=== PATIENT | female | born 1980 | race African-American/Black ===

== ENCOUNTER 2021-08-24 16:26 | Emergency (ER) | payer OTHER, SELFPAY ==
[2021-08-24 16:43] VITALS: BP 149/86; PULSE 84; RESP 16; TEMP 36.5; O2SAT 99
--- NOTE | 2021-08-24 17:10 | ED.FEMALEGU ---
HPI - Female Genitourinary General Chief complaint: Urogenital-Female Stated complaint: uti Time Seen by Provider: 08/24/21 16:50 Source: patient Mode of arrival: ambulatory Limitations: no limitations History of Present Illness HPI Narrative: Patient presents today complaining of left lower quadrant pain and thick white vaginal discharge that she noted this morning along with urinary frequency. Denies any additional symptoms to include dysuria, hematuria, nausea or vomiting, diarrhea, fever. Related Data Home Medications Medication Instructions Recorded Confirmed metformin 500 mg tablet 500 mg PO DAILY 08/24/21 08/24/21 Allergies Allergy/AdvReac Type Severity Reaction Status Date / Time No Known Allergies Allergy Verified 08/24/21 16:28 Review of Systems Review of Systems: CONSTITUTIONAL: Denies body aches, fever, chills, or sweats. EYES: Denies visual changes, redness, or discharge. ENT: Denies rhinorrhea, congestion, sore throat, or otalgia. CARDIOVASCULAR: Denies chest pain, palpitations, or edema. RESPIRATORY: Denies cough or dyspnea. GASTROINTESTINAL: Denies nausea, vomiting, or diarrhea.+ Left lower quadrant abdominal pain GENITOURINARY: + Urinary frequency, vaginal discharge SKIN: Denies rash, itching, or wounds. MUSCULOSKELETAL: Denies back pain, joint pain, or myalgia. NEUROLOGIC: Denies headache, numbness, tingling, or weakness. PSYCH: Denies depression or anxiety. PMFSH Comments At time of signature, I have reviewed and agree with nursing past medical, surgical, social and family history unless otherwise noted. Please see nursing chart for further information. There is no relevant family history pertinent to the presenting complaint Exam Narrative: GENERAL: Well-appearing, well-nourished, and in no acute distress. HEAD: Normocephalic, atraumatic. EYES: EOMI. No redness or drainage. Conjunctivae normal. ENT: Mucous membranes pink and moist. NECK: Normal AROM. CHEST: No respiratory distress. ABDOMEN: Soft, nontender, nondistended, normal active bowel sounds. No rebound or guarding. : -CMT or adnexal tenderness. Pieces of toilet paper found in vagina. Scant amount of very thin white discharge noted as well. Swab obtained. External genitalia normal. EXTREMITIES: Normal range of motion. No edema. SKIN: Warm, dry, no rash. Capillary refill normal. Normal skin turgor. NEURO: No focal deficits. Alert and oriented x3. Gait steady. PSYCH: Normal affect. No signs of depression or anxiety. Course Course Emergency Course: Patient wishes to be tested for sexually transmitted infections as well, so her urine will be sent off for these test. Level of Care: Express Care Visit Vital Signs Vital signs: Vital Signs Temperature 97.7 F 08/24/21 16:43 Pulse Rate 84 08/24/21 16:43 Respiratory Rate 16 08/24/21 16:43 Blood Pressure 149/86 H 08/24/21 16:43 Pulse Oximetry 99 08/24/21 16:43 Oxygen Delivery Room Air 08/24/21 16:43 Temperature 97.7 F 08/24/21 16:43 Pulse Rate 84 08/24/21 16:43 Respiratory Rate 16 08/24/21 16:43 Blood Pressure 149/86 H 08/24/21 16:43 Pulse Oximetry 99 08/24/21 16:43 Oxygen Delivery Room Air 08/24/21 16:43 Reviewed. Pt has been instructed to follow up with her PCP regarding her elevated blood pressure today. MDM - Female Genitourinary Differential Diagnosis Differential diagnosis: Likely urinary tract infection, bacterial vaginosis, ovarian cyst and vaginitis Lab Data Attestation: I reviewed the patient's lab results. Labs: Urine Glucose Negative Reference Range: Negative Urine Bilirubin Negative Reference Range: Negative Urine Ketone Negative Reference Range: Negative Urine Specific [place] 1.025
== END 2021-08-24 17:28 | disposition home or self-care (01) ==
PROVIDERS: Emergency Provider Nurse Practitioner
DX: N89.8 Other specified noninflammatory disorders of vagina (principal); R10.32 Left lower quadrant pain; E11.9 Type 2 diabetes mellitus without complications; Z79.84 Long term (current) use of oral hypoglycemic drugs
CPT/HCPCS: 81003; 87070; 87491; 87591; 87661; 99214; G0463

== ENCOUNTER 2022-04-10 06:53 | Emergency (ER) | payer OTHER, SELFPAY ==
--- NOTE | ~2022-04-10 | XR_ITS ---
EXAMINATION: XR ribs LT 2V w CXR 2V DATE: 04/10/2022 07:48 INDICATION: 6 days of left rib pain after lifting heavy objects TECHNIQUE: PA and lateral views of the chest and 3 views of the left ribs were obtained. COMPARISON: None FINDINGS: Lungs are clear with no focal airspace opacities, pulmonary edema, pleural effusion or pneumothorax. Cardiomediastinal silhouette is normal. Mild thoracic dextrocurvature and mild lumbar levocurvature. No other fractures identified.. IMPRESSION: 1. No rib fracture or acute cardiopulmonary disease. Reviewed, dictated and finalized at location [facility]
[2022-04-10 07:02] VITALS: BP 134/82; PULSE 68; RESP 18; TEMP 36.7; O2SAT 100
[2022-04-10] MEDS: KETOROLAC (*BKC) 60 MG/2 ML VIAL IM (07:50)
--- NOTE | 2022-04-10 07:55 | ED.BACK ---
HPI - Back Pain/Injury General Chief Complaint: Back Pain/Injury Stated Complaint: Left flank pain/back pain, want xray? Time Seen by Provider: 04/10/22 07:23 History of Present Illness HPI Narrative: Patient is a 41-year-old female who presents ER with left-sided back pain. Ongoing over the last week. It is located over the rib cage. No numbness or tingling in the arms or legs. No known trauma or injury. Reports she has been doing more laundry at her work than typical. She has been taking Tylenol and ibuprofen without improvement. She was prescribed tramadol yesterday and told that she should get an x-ray. Patient has no runny nose or sore throat or productive cough. No pain with deep breath. Related Data Home Medications Medication Instructions Recorded Confirmed metformin 500 mg tablet 500 mg PO DAILY 08/24/21 08/24/21 Allergies Allergy/AdvReac Type Severity Reaction Status Date / Time No Known Allergies Allergy Verified 04/10/22 07:05 Review of Systems Constitutional: Constitutional: Denies chills and Denies fever(s) ENT: Denies nasal congestion and Denies sore throat Cardiovascular: Cardiovascular: Denies chest pain, Denies rapid heart rate and Denies radiating jaw, neck or arm pain Respiratory: Respiratory: Denies cough and Denies dyspnea Gastrointestinal: Gastrointestinal: Denies abdominal pain, Denies nausea and Denies vomiting Musculoskeletal: Musculoskeletal: Reports back pain (And chest wall) Integumentary/Breasts: Skin/Breast: Denies erythema and Denies rash Neurologic: Denies focal weakness and Denies numbness PMFSH Past Medical History Medical History (Updated 04/10/22 @ 08:35 by Geovany Deng MD) Prediabetes Surgical History Surgical History (Updated 04/10/22 @ 07:57 by Geovany Deng MD) No history of previous surgery Exam Narrative: GENERAL: Well-appearing, well-nourished, and in no acute distress. HEAD: Normocephalic, atraumatic. CHEST: Clear to auscultation. No respiratory distress. Tender to palpation left posterior chest wall over the lower ribs without crepitus/bruising/abrasion. HEART: Regular rate and rhythm. Normal peripheral pulses. Back: No reproducible midline or paraspinal muscular tenderness of the T/L-spine. EXTREMITIES: Normal range of motion. No edema. SKIN: Warm, dry, no rash. NEURO: Alert and oriented x3. PSYCH: Normal mood and affect. Course Course Emergency Course: Patient resting comfortably. Received Toradol IM. Informed of results. Recommend continued anti-inflammatories and tramadol for home. Patient verbalized understanding. Vital Signs Vital signs: Vital Signs Temperature 98.1 F 04/10/22 07:02 Pulse Rate 68 04/10/22 07:02 Respiratory Rate 18 04/10/22 07:02 Blood Pressure 134/82 04/10/22 07:02 Pulse Oximetry 100 04/10/22 07:02 Oxygen Delivery Room Air 04/10/22 07:02 Temperature 98.1 F 04/10/22 07:02 Pulse Rate 68 04/10/22 07:02 Respiratory Rate 18 04/10/22 07:02 Blood Pressure 134/82 04/10/22 07:02 Pulse Oximetry 100 04/10/22 07:02 Oxygen Delivery Room Air 04/10/22 07:02 MDM - Back Pain/Injury Imaging Data Radiologist's impression: ITS Impressions Ribs w/Chest X-Ray 04/10/22 07:52 IMPRESSION: 1. No rib fracture or acute cardiopulmonary disease. Discharge Plan Discharge Clinical Impression: Chest wall muscle strain Patient Disposition: Home, Self-Care Condition: Stable Instructions: Muscle Strain (ED) Additional Instructions: Return the ER if you have fever over 100.4 ?F, you cannot breathe, you cannot keep down food or water, or you have additional concerns. Continue take your tramadol for discomfort but also take ibuprofen. Prescriptions: No Action metformin 500 mg tablet 500 mg PO DAILY Follow-up/Referrals: PHYSICIAN NOT ON STAFF,NONSTAFF [Non-Staff] - 1 Week
== END 2022-04-10 08:41 | disposition home or self-care (01) ==
PROVIDERS: Emergency Provider Emergency Medicine
DX: S29.011A Strain of muscle and tendon of front wall of thorax, initial encounter (principal); X50.0XXA Overexertion from strenuous movement or load, initial encounter
CPT/HCPCS: 71046; 71100; 96372; 99283; J1885